=== PATIENT | male | born 1990 | race Caucasian/White ===

== ENCOUNTER 2022-07-05 03:08 | Emergency (ER) | payer BC ==
[2022-07-05] MEDS ORDERED: Acetaminophen/HYDROcodone 325-5 MG Tab PO ONE (04:15)
[2022-07-05] MEDS ORDERED: Tamsulosin 0.4 MG Cap.ER PO ONE (04:15)
== END 2022-07-05 04:25 | disposition home or self-care (01) ==
LOC: JD.ED 03:08
DX: N20.1 Calculus of ureter (principal); F17.210 Nicotine dependence, cigarettes, uncomplicated
CPT/HCPCS: 74176; 81001; 99284; A9270; 99283